=== PATIENT | male | born 1960 | race Caucasian/White ===

== ENCOUNTER 2017-05-09 16:22 | Observation (INO) ==
[2017-05-09 17:01] LABS: Basophils % 0.9 %; Eosinophils # 0.1 K/mcL (0.0-0.6); Eosinophils % 1.3 %; Hematocrit 40.5 % (37.5-50.1); Hemoglobin 14.7 g/dL (12.9-16.9); Immature Granulocytes % 0.4 % (0-4); Lymphocytes # 1.1 K/mcL (0.6-4.6); Lymphocytes % 23.7 %; Mean Corpuscular HGB Conc 36.3 g/dL (31.6-35.5); Mean Corpuscular Hemoglobin 30.6 pg (28.0-33.3); Mean Corpuscular Volume 84.2 fL (83.0-100.0); Mean Platelet Volume 9.1 fL (9.4-12.4); Monocytes # 0.3 K/mcL (0.0-1.3); Neutrophils # 3.1 K/mcL (1.6-8.9); Platelet Count 205 K/mcL (140-400); Red Blood Count 4.81 M/mcL (4.19-5.50); Red Cell Distribution Width 13.6 % (11.5-14.5); Segmented Neutrophils % 66.7 %
[2017-05-09 17:07] LABS: Prothrombin Time 11.2 Seconds (9.4-12.1)
--- NOTE | 2017-05-09 17:08 | Emergency Department Note ---
Disposition Clinical Impression: Dysarthria, Facial numbness Disposition: Admitted As Inpatient Condition: Good General Adult HPI - General Chief complaint: ED Neuro Symptoms/Deficit Stated complaint: neuro sx Time Seen by Provider: 05/09/17 16:40 Source: patient Limitations: no limitations - History of Present Illness Pain Scale: 8 - Related Data Home Medications Medication Instructions Recorded Confirmed glipiZIDE 05/09/17 05/09/17 Allergies Allergy/AdvReac Type Severity Reaction Status Date / Time metformin Allergy Diarrhea Verified 05/09/17 16:26 Past Medical History - Past Medical History Medical history: Reports: diabetes, hypertension Psychiatric history: Reports: no psych history - Social History Smoking Status: Former smoker Smokeless Tobacco Status: No Alcohol use: Reports: none Drug use: Reports: none Physical Exam - General Limitations: no limitations General appearance: alert, in no apparent distress Course Vital Signs Temperature 98.0 F 05/09/17 16:26 Pulse Rate 115 05/09/17 16:26 Respiratory Rate 18 05/09/17 16:26 Blood Pressure 183/94 05/09/17 16:26 O2 Sat by Pulse Oximetry 97 05/09/17 16:26 Temperature 97.8 F 05/09/17 19:57 Pulse Rate 87 05/09/17 19:57 Respiratory Rate 17 05/09/17 19:57 Blood Pressure 151/71 05/09/17 19:57 O2 Sat by Pulse Oximetry 97 05/09/17 19:57 Oxygen Delivery Oxygen Delivery Room Air Medical Decision Making - Lab Data Result diagrams: 05/09/17 16:44 05/09/17 16:44 Lab Results 05/09/17 05/09/17 05/09/17 Range/Units 16:44 16:44 16:44 WBC 4.7 (4.3-11.1) K/mcL RBC 4.81 (4.19-5.50) M/mcL Hgb 14.7 (12.9-16.9) g/dL Hct 40.5 (37.5-50.1) % MCV 84.2 (83.0-100.0) fL MCH 30.6 (28.0-33.3) pg MCHC 36.3 H (31.6-35.5) g/dL RDW 13.6 (11.5-14.5) % Plt Count 205 (140-400) K/mcL MPV 9.1 L (9.4-12.4) fL Immature Gran % 0.4 (0-4) % Seg Neutrophils % 66.7 % Lymphocytes % 23.7 % Monocytes % 7.0 % Eosinophils % 1.3 % Basophils % 0.9 % Neutrophils # 3.1 (1.6-8.9) K/mcL Lymphocytes # 1.1 (0.6-4.6) K/mcL Monocytes # 0.3 (0.0-1.3) K/mcL Eosinophils # 0.1 (0.0-0.6) K/mcL Basophils # 0.0 (0.0-0.2) K/mcL PT 11.2 (9.4-12.1) Seconds INR 1.0 APTT 29.6 (26.0-36.0) Seconds Sodium 133 L (136-145) mEq/L Potassium 3.8 (3.5-5.1) mEq/L Chloride 102 (98-107) mEq/L Carbon Dioxide 22 L (23-29) mEq/L BUN 15 (6-20) mg/dL Creatinine 0.85 (0.70-1.30) mg/dL Est GFR ( Amer) > 60 (> 60) Est GFR (Non-Af Amer) > 60 (> 60) BUN/Creatinine Ratio 18 (6-26) Glucose 366 H (70-105) mg/dL POC Glucose (58-89) Calculated Osmolality 292 (280-300) Calcium 9.6 (8.6-10.3) mg/dL Troponin I < 0.03 (< 0.04) ng/mL 05/09/17 05/09/17 Range/Units 16:45 16:47 WBC (4.3-11.1) K/mcL RBC (4.19-5.50) M/mcL Hgb (12.9-16.9) g/dL Hct (37.5-50.1) % MCV (83.0-100.0) fL MCH (28.0-33.3) pg MCHC (31.6-35.5) g/dL RDW (11.5-14.5) % Plt Count (140-400) K/mcL MPV (9.4-12.4) fL Immature Gran % (0-4) % Seg Neutrophils % % Lymphocytes % % Monocytes % % Eosinophils % % Basophils % % Neutrophils # (1.6-8.9) K/mcL Lymphocytes # (0.6-4.6) K/mcL Monocytes # (0.0-1.3) K/mcL Eosinophils # (0.0-0.6) K/mcL Basophils # (0.0-0.2) K/mcL PT (9.4-12.1) Seconds INR APTT (26.0-36.0) Seconds Sodium (136-145) mEq/L Potassium (3.5-5.1) mEq/L Chloride (98-107) mEq/L Carbon Dioxide (23-29) mEq/L BUN (6-20) mg/dL Creatinine (0.70-1.30) mg/dL Est GFR ( Amer) (> 60) Est GFR (Non-Af Amer) (> 60) BUN/Creatinine Ratio (6-26) Glucose (70-105) mg/dL POC Glucose 338 H 362 H (58-89) Calculated Osmolality (280-300) Calcium (8.6-10.3) mg/dL Troponin I (< 0.04) ng/mL Attestation Statement - Attestation Attestation: I examined this patient and my medical decision-making was reviewed with the Resident Physician. I agree with the documented findings, disposition and treatment plan as described except to the extent set forth below. [id number] time provided Patient arrives in the care of his girlfriend. He has experienced dysarthria that started 45 minutes prior to arrival. Stroke alert activated. Patient appears in no acute distress on exam
[2017-05-09 17:09] LABS: Activated Partial Thrombo Time 29.6 Seconds (26.0-36.0)
[2017-05-09 17:27] LABS: BUN/Creatinine Ratio 18 (6-26); Blood Urea Nitrogen 15 mg/dL (6-20); Calcium 9.6 mg/dL (8.6-10.3); Carbon Dioxide 22 mEq/L (23-29); Chloride 102 mEq/L (98-107); Glucose 366 mg/dL (70-105); Osmolality,Calculated 292 (280-300); Potassium 3.8 mEq/L (3.5-5.1); Sodium 133 mEq/L (136-145); Troponin I < 0.03 ng/mL (< 0.04); eGFR For African Americans > 60 (> 60); eGFR For Non-African Americans > 60 (> 60)
[2017-05-09] MEDS ORDERED: Aspirin 325 MG TABLET PO ONE (17:39)
--- NOTE | 2017-05-09 17:50 | Emergency Department Note ---
Disposition Clinical Impression: Dysarthria, Facial numbness Disposition: Admitted As Inpatient Condition: Good Forms: ED Satisfaction Letter Neuro HPI - General Chief Complaint: ED Neuro Symptoms/Deficit Stated Complaint: neuro sx Time Seen by Provider: 05/09/17 16:40 Source: patient Mode of arrival: private vehicle Limitations: no limitations Nursing Notes Reviewed: Yes Vital Signs Reviewed: Yes - History of Present Illness HPI Narrative: 56-year-old male history of diabetes presents to the ER with a chief complaint of left facial paresthesias and dysarthria. States symptoms started around 2 PM yesterday. Lasted for roughly 3 hours and went away. Reports today he started having pain and paresthesias to the left face again and his speech was different. No prior history of this in the past. No history of CVA or TIA. No head injury. No recent illnesses. No numbness tingling or paresthesias of with the exception of his face. No other complaints. Onset of Symptoms Date: 05/08/17 Onset of Symptoms Time: 14:00 Symptom Onset Unknown: No Timing confirmed by: spouse Location: speech, left face History of same: No Severity: mild Symptoms Improving: Yes Improves with: time Worsens with: none Context: sudden onset On Anticoagulants: No Associated symptoms: Reports: denies other symptoms Treatments Prior to Arrival: none - Related Data Allergies/Adverse Reactions: Allergies Allergy/AdvReac Type Severity Reaction Status Date / Time metformin Allergy Diarrhea Verified 05/09/17 16:26 All systems ED: reviewed and negative except as stated. Constitutional: Denies: fever Cardiovascular: Denies: chest pain Respiratory: Denies: cough, dyspnea Gastrointestinal: Denies: abdominal pain, nausea, vomiting Neurological: Reports: paresthesias. Denies: headache, weakness, numbness Past Medical History - Past Medical History Attestation: Yes The following information was validated with the patient. Source: patient Medical history: Reports: diabetes, hypertension Psychiatric history: Reports: no psych history - Social History Smoking Status: Former smoker Smokeless Tobacco Status: No Alcohol use: Reports: none Drug use: Reports: none Physical Exam - General Limitations: no limitations General appearance: alert, in no apparent distress - Head Head exam: atraumatic, normocephalic, normal inspection - Eye Eye exam: Present: normal appearance, PERRL, EOMI - ENT ENT exam: normal exam - Neck Neck exam: Present: normal inspection, full ROM - Chest Chest inspection: Present: normal inspection, symmetric chest wall rise - Respiratory Respiratory exam: Present: normal lung sounds bilaterally - Cardiovascular Cardiovascular exam: Present: regular rate, normal rhythm, normal heart sounds - Abdominal Exam Abdominal exam: Present: soft, Non-Tender. Absent: tenderness - Extremities Exam Extremities exam: Present: normal inspection, full ROM - Expanded Upper Extremity Exam Shoulder exam: Present: normal inspection, full ROM Arm exam: Present: normal inspection, full ROM Elbow exam: Present: normal inspection, full ROM Forearm/Wrist exam: Present: normal inspection, full ROM Hand exam: Present: normal inspection, full ROM - Expanded Lower Extremity Exam Hip/Pelvis exam: Present: normal inspection, full ROM Upper leg exam: Present: normal inspection, full ROM Knee exam: Present: normal inspection, full ROM Lower leg exam: Present: normal inspection, full ROM Ankle exam: Present: normal inspection, full ROM Foot/toe exam: Present: normal inspection, full ROM - Neurological Exam Neurological exam: Present: alert, oriented X3 - Expanded Neurological Exam Speech: Present: fluid speech Cranial nerves: EOM function (II, III, IV, ): Normal, facial sensation (V): Abnormal Left, facial palsy (VII): Abnormal Left, spinal accessory function (XI) : Normal, tongue deviation (XII): Normal Cerebellar function: finger to nose: Normal, heel to momin: Normal Motor strength - LUE: 5/5 Motor strength - RUE: 5/5 Motor strength - LLE: 5/5 Motor strength - RLE: 5/5 Sensory exam upper extremity: light touch: Normal Sensory exam lower extremity: light touch: Normal Coma Scale Eye Opening: Spontaneous Coma Scale Motor Response: Obeys Commands Coma Scale Verbal Response: Oriented Coma Scale Total: 15 - Psychiatric Psychiatric exam: Present: normal affect, normal mood - Skin Skin exam: Present: warm, dry Course Course Narrative: Patient seen and examined. Vital signs reviewed. Stroke alert called given his symptoms. Last known well at 2 PM today. Patient taken for emergent CT of the head. We will also discuss with stroke neurology at [facility]. - Reevaluation(s) Reevaluation #1: Patient evaluated by telecommunication with [facility] neurology. They give him a score of an NIH of 1. No recommendation for TPA however they do recommend to admit for evaluation. Vital Signs Temperature 98.0 F 05/09/17 16:26 Pulse Rate 115 05/09/17 16:26 Respiratory Rate 18 05/09/17 16:26 Blood Pressure 183/94 05/09/17 16:26 O2 Sat by Pulse Oximetry 97 05/09/17 16:26 Temperature 98.0 F 05/09/17 16:26 Pulse Rate 80 05/09/17 18:12 Respiratory Rate 20 05/09/17 18:12 Blood Pressure 149/88 05/09/17 18:12 O2 Sat by Pulse Oximetry 97 05/09/17 18:12 Oxygen Delivery Oxygen Delivery Room Air Neuro Symptoms/Deficit - MDM Narrative Medical decision making narrative: 56-year-old male presents to the ER with a chief complaint of dysarthria and left facial numbness. Symptoms were there yesterday then went away. Recurred again today at 2 PM. Stroke alert called. Evaluated by [facility] neurology. No recommendation for TPA. NIH of 2 by my account here. Patient given aspirin. Admitted the hospitalist service for stroke evaluation. - Lab Data Lab results reviewed: Yes I reviewed the patient's lab results. Result diagrams: 05/09/17 16:44 05/09/17 16:44 Lab Results 05/09/17 05/09/17 05/09/17 Range/Units 16:44 16:44 16:44 WBC 4.7 (4.3-11.1) K/mcL RBC 4.81 (4.19-5.50) M/mcL Hgb 14.7 (12.9-16.9) g/dL Hct 40.5 (37.5-50.1) % MCV 84.2 (83.0-100.0) fL MCH 30.6 (28.0-33.3) pg MCHC 36.3 H (31.6-35.5) g/dL RDW 13.6 (11.5-14.5) % Plt Count 205 (140-400) K/mcL MPV 9.1 L (9.4-12.4) fL Immature Gran % 0.4 (0-4) % Seg Neutrophils % 66.7 % Lymphocytes % 23.7 % Monocytes % 7.0 % Eosinophils % 1.3 % Basophils % 0.9 % Neutrophils # 3.1 (1.6-8.9) K/mcL Lymphocytes # 1.1 (0.6-4.6) K/mcL Monocytes # 0.3 (0.0-1.3) K/mcL Eosinophils # 0.1 (0.0-0.6) K/mcL Basophils # 0.0 (0.0-0.2) K/mcL PT 11.2 (9.4-12.1) Seconds INR 1.0 APTT 29.6 (26.0-36.0) Seconds Sodium 133 L (136-145) mEq/L Potassium 3.8 (3.5-5.1) mEq/L Chloride 102 (98-107) mEq/L Carbon Dioxide 22 L (23-29) mEq/L BUN 15 (6-20) mg/dL Creatinine 0.85 (0.70-1.30) mg/dL Est GFR ( Amer) > 60 (> 60) Est GFR (Non-Af Amer) > 60 (> 60) BUN/Creatinine Ratio 18 (6-26) Glucose 366 H (70-105) mg/dL POC Glucose (58-89) Calculated Osmolality 292 (280-300) Calcium 9.6 (8.6-10.3) mg/dL Troponin I < 0.03 (< 0.04) ng/mL 05/09/17 05/09/17 Range/Units 16:45 16:47 WBC (4.3-11.1) K/mcL RBC (4.19-5.50) M/mcL Hgb (12.9-16.9) g/dL Hct (37.5-50.1) % MCV (83.0-100.0) fL MCH (28.0-33.3) pg MCHC (31.6-35.5) g/dL RDW (11.5-14.5) % Plt Count (140-400) K/mcL MPV (9.4-12.4) fL Immature Gran % (0-4) % Seg Neutrophils % % Lymphocytes % % Monocytes % % Eosinophils % % Basophils % % Neutrophils # (1.6-8.9) K/mcL Lymphocytes # (0.6-4.6) K/mcL Monocytes # (0.0-1.3) K/mcL Eosinophils # (0.0-0.6) K/mcL Basophils # (0.0-0.2) K/mcL PT (9.4-12.1) Seconds INR APTT (26.0-36.0) Seconds Sodium (136-145) mEq/L Potassium (3.5-5.1) mEq/L Chloride (98-107) mEq/L Carbon Dioxide (23-29) mEq/L BUN (6-20) mg/dL Creatinine (0.70-1.30) mg/dL Est GFR ( Amer) (> 60) Est GFR (Non-Af Amer) (> 60) BUN/Creatinine Ratio (6-26) Glucose (70-105) mg/dL POC Glucose 338 H 362 H (58-89) Calculated Osmolality (280-300) Calcium (8.6-10.3) mg/dL Troponin I (< 0.04) ng/mL - Radiology Data Radiology results reviewed: Yes I reviewed the patient's radiology results. Head CT 05/09/17 16:44 IMPRESSION: No CT evidence for acute intracranial abnormality. If there remains concern for acute stroke, MRI could be considered for further evaluation due to its increased sensitivity for acute stroke. D/ / Wolf Victor / Wolf Victor Interpreting Provider: Wolf Victor Stroke Scale - Level of Consciousness LOC: Alert - LOC Questions LOC Questions: Answers both correctly - LOC Commands LOC Commands: Performs both correctly - Best Gaze Best Gaze: Normal - Visual Visual: No visual loss - Facial Palsy Facial Palsy: Normal - Motor Arms Motor Arm-Left: No drift for 10 seconds Motor Arm-Right: No drift for 10 seconds - Motor Legs Motor Leg-Left: No drift for 5 seconds Motor Leg-Right: No drift for 5 seconds - Limb Ataxia Limb Ataxia: Absent of affected limb too weak to perform exam - Sensory Sensory: Mild to moderate loss, "not as sharp" - Best Language Best Language: No aphasia - Dysarthria Dysarthria: Mild, slurs some words - Extinction and Inattention Extinction and Inattention: Normal - NIHSS Total Score NIHSS Total Score: 2 TPA Checklist - LKW: 3-4.5 hrs Add. Warnings/Precautions Patient/family understanding: The patient/family members have been counseled and understood the risk, benefit , and alternatives of treatment.
--- NOTE | 2017-05-09 23:08 | Internal Med History&Physical ---
<Jaymie Hubbard - Last Filed: 05/10/17 03:58> Date of Encounter: 05/10/17 Time of Encounter: 23:08 Assessment and Plan (1) TIA (transient ischemic attack) Current visit: Yes Status: Acute Suspected. Initial imaging (CT head without contrast) negative for acute intracranial abnormalities. Left-sided facial numbness resolved. Slurred speech improved, per pt--pt's significant other not present at time of my exam. Slight left-sided facial droop present. Not candidate for tPA per [facility] stroke team. Blood pressure 145/68 and pulse 78, no anti-hypertensives at this time. - EKG - Continuous cardiac monitoring - NIHSS checks per protocol - Bilateral carotid ultrasound pending - MRI head without contrast pending - Echocardiogram pending - Neurology consult placed - Start atorvastatin 80 mg PO HS Qualifiers: Transient cerebral ischemia type: unspecified Qualified Code(s): G45.9 - Transient cerebral ischemic attack, unspecified (2) Type 2 diabetes mellitus without complication, with long-term current use of insulin Current visit: Yes Status: Chronic Hyperglycemic on admission, serum glucose of 366. Home med glipizide held. Placed on SSI with ACHS accu-cheks. (3) DVT prophylaxis Current visit: Yes Status: Acute Heparin 5,000 units SubQ Q12H Internal Medicine - H&P: HPI Chief complaint: Left-sided facial numbness, slurred speech History of present illness: Mr. Jiménez is a 56 year old male who presented to ED with c/o left-sided facial numbness and slurred speech since 14:00 on day of admission. Pt describes driving when he experienced left-sided face pain that was constant and felt like a "toothache" before feeling left-sided facial numbness. He admits to having 5-10 minutes of "shady" vision which resolved on its own. Pt went to urgent care and was found to be hypertensive and tachycardic, urgent care recommended he go to the ED for CT scan. En route to the ED, pt's girlfriend noticed his speech seemed to be slurred. Pt had a similar experience the day before of left-sided face pain and numbness that began around 14:00 [address], the pain lasted about 3 hours before going away on its own, he had no slurred speech or vision changes. Pt denies aggravating or relieving factors regarding his facial pain. He denies headache, diplopia, vision loss, sensation of dizziness/lightheadedness, weakness, paresthesias except as described above, confusion, loss of bowel or bladder continence. On arrival to ED, pt was tachycardic with pulse 115 and hypertensive with BP 183 /94. He received a head CT which found no acute intracranial abnormalities and basic labs were drawn. Labwork largely unremarkable, but did show hyperglycemia (366) and slight hyponatremia (133). ED physicians spoke with [facility] stroke team who gave pt NIH stroke scale score of 1 and didn't believe pt was a candidate for tPA, but recommended admission for workup. Past Med Surg Social Fam HX - Past Medical History Medical history: diabetes, hypertension Psychiatric history: no psych history - Social History Smoking Status: Former smoker Smokeless Tobacco Status: No Alcohol use: none Drug use: none - Family History Father Living Status: Hx Family Cancer: Yes Mother Living Status: Hx Family Cardiac Disorders: Yes Internal Medicine - H&P: Meds glipiZIDE 05/09/17 [History] 3 Allergy/AdvReac Type Severity Reaction Status Date / Time metformin Allergy Diarrhea Verified 05/09/17 16:26 All Systems PM: A 10-system review of systems was performed and is negative for pertinent findings except as documented above in the HPI. - Constitutional Constitutional: no chills, no fever(s) - EENT Eyes: no blurry vision, no diplopia, no photophobia Nose, mouth and throat: no neck pain - Cardiovascular Cardiovascular ROS IM: no chest pain, no dyspnea, no lightheadedness, no palpitations - Respiratory Respiratory: no cough, no dyspnea - Gastrointestinal Gastrointestinal: no abdominal pain, no constipation, no diarrhea, no fecal incontinence, no heartburn, no nausea, no vomiting - Genitourinary Genitourinary ROS male: no urinary incontinence - Musculoskeletal Musculoskeletal ROS IM: no muscle weakness, no neck pain, no numbness - Neurological Neurological ROS: no abnormal gait, no confusion, no dizziness, no focal weakness, no loss of vision, no paresthesias, no weakness - Constitutional Vitals: Temp Pulse Resp BP Pulse Ox 97.9 F 78 17 145/68 97 05/09/17 23:04 05/09/17 23:04 05/09/17 23:04 05/09/17 23:04 05/09/17 23:04 General appearance: Present: A&O X 3, pleasant, no acute distress, answers questions appropriately - Head Head exam: Present: atraumatic, normocephalic Additional comments: Left-side pre-auricular area and jaw not tender to palpation, no visible swelling or deformity - Eye Eye exam: Present: EOMI, PERRL, sclera anicteric. Absent: periorbital swelling , periorbital tenderness - ENT Additional comments: No visible or palpable left-sided oral lesions or swelling. - Expanded ENT Exam Mouth exam: Present: moist, tongue normal. Absent: drooling, muffled voice Teeth exam: Present: edentulous - Neck Neck exam general surgery: Present: full ROM, supple. Absent: nuchal rigidity - Respiratory Respiratory exam: Present: CTAB. Absent: rales, respiratory distress, rhonchi, wheezes - Cardiovascular Cardiovascular exam: Present: RRR, +S1, +S2, systolic murmur - GI/Abdominal GI/Abdominal exam: Present: normal bowel sounds, soft. Absent: tenderness - Extremities Exam Extremities exam: Present: full ROM - Back Exam Back exam: Present: normal inspection - Neurological Exam Neurological exam: Present: CN II-XII intact, no focal deficits, facial droop ( left-sided, slight) - Expanded Neurological Exam Patient oriented to: Present: person, place, time Speech: Present: fluid speech. Absent: slurred Cerebellar function: finger to nose: Normal, heel to momin: Normal Neuro motor strength exam: LUE: 5, RUE: 5, LLE: 5, RLE: 5 Coma Scale Eye Opening: Spontaneous Coma Scale Motor Response: Obeys Commands Coma Scale Verbal Response: Oriented Coma Scale Total: 15 - Skin Skin exam: Present: dry, intact, warm Internal Med - H&P Results - Labs CBC & Chem 7: 05/09/17 16:44 05/09/17 16:44 <Tito Allen - Last Filed: 05/10/17 04:32> Date of Encounter: 05/10/17 Time of Encounter: 03:20 Past Med Surg Social Fam HX - Past Medical History Attestation: Yes The following information was validated with the patient. Source: patient, old records reviewed Medical history: diabetes, hypertension - Past Surgical History Surgical History: no surgical history - Social History Smoking Status: Former smoker Alcohol use: none Drug use: none Occupational status: employed Current living situation: Home, With Family Activity Level: Independent ambulation Recent Out of Country Travel Within the Last 8 Weeks: No - Constitutional Vitals: Temp Pulse Resp BP Pulse Ox 97.8 F 83 16 131/76 96 05/10/17 03:05 05/10/17 03:05 05/10/17 03:05 05/10/17 03:05 05/10/17 03:05 General appearance: Present: A&O X 3, pleasant, no acute distress - Head Head exam: Present: normal inspection - Eye Eye exam: Present: EOMI, PERRL. Absent: scleral icterus Pupils: Present: normal accommodation - ENT ENT exam: Present: mucous membranes dry, normal exam - Neck Neck exam general surgery: Present: full ROM, supple. Absent: tenderness, nuchal rigidity - Expanded Neck Exam Neck exam: Absent: anterior neck swelling - Respiratory Respiratory exam: Present: CTAB. Absent: rales, rhonchi, wheezes - Cardiovascular Cardiovascular exam: Present: RRR, +S1, +S2, systolic murmur (grade 1- 2). Absent: diastolic murmur - GI/Abdominal GI/Abdominal exam: Present: soft. Absent: tenderness - Neurological Exam Neurological exam: Present: alert, CN II-XII intact, oriented X3, no focal deficits. Absent: facial droop - Psychiatric Psychiatric exam: Present: normal affect, normal mood - Skin Skin exam: Present: dry, intact, warm Internal Med - H&P Results - Labs CBC & Chem 7: 05/09/17 16:44 05/09/17 16:44 - EKG Data -: EKG Interpreted by Myself - EKG Data EKG comments: 05/10/17 04:24 Sinus rhythm - Attending Attestation I discussed the patient [place], PMH, ROS, lab data, and exam findings with Dr. Javed. I then saw and examined patient independently as well. Patient seems to have fully recovered by the time I saw him. He denies any focal deficits, speech deficits, or swallowing problems. He is diabetic and hypertensive. He has no PCP, and he follows with Urgent Care when he needs medications. Family history is negative for stroke per my discussions with patient. Despite resolution of symptoms, he warrants work up as noted above. I also counseled patient on need for proper follow up and establishment with PCP. Other than my comments above and noted exam findings, I agree with Dr. Javed' s assessment and plan.
[2017-05-10] MEDS ORDERED: Naloxone 0.4 MG/ML INJ IVP PRN (00:01)
[2017-05-10] MEDS ORDERED: D5% in Water 1,000 ML IVC PRN (00:03)
[2017-05-10] MEDS ORDERED: *HR* Dextrose 50 % in Water (Syg) 50 ML SYRINGE IVP PRN (00:03)
[2017-05-10] MEDS ORDERED: Dextrose Gel 15 GM/37.5 ML TUBE PO PRN ×2 (00:03)
[2017-05-10] MEDS: *HR* Heparin 5,000 UNIT/ML VIAL SQ SCH ×2 (05:38→17:47)
[2017-05-10 06:42] LABS: Hematocrit 39.4 % (37.5-50.1); Hemoglobin 13.8 g/dL (12.9-16.9); Mean Corpuscular Volume 86.2 fL (83.0-100.0); Red Blood Count 4.57 M/mcL (4.19-5.50)
[2017-05-10 06:43] LABS: Basophils % 1.1 %; Eosinophils # 0.1 K/mcL (0.0-0.6); Eosinophils % 1.9 %; Immature Granulocytes % 0.5 % (0-4); Lymphocytes # 1.1 K/mcL (0.6-4.6); Lymphocytes % 28.8 %; Mean Corpuscular Hemoglobin 30.2 pg (28.0-33.3); Mean Platelet Volume 9.3 fL (9.4-12.4); Monocytes # 0.4 K/mcL (0.0-1.3); Monocytes % 9.5 %; Neutrophils # 2.1 K/mcL (1.6-8.9); Platelet Count 181 K/mcL (140-400); Red Cell Distribution Width 13.8 % (11.5-14.5); Segmented Neutrophils % 58.2 %
[2017-05-10 06:58] LABS: BUN/Creatinine Ratio 18 (6-26); Blood Urea Nitrogen 13 mg/dL (6-20); Calcium 8.9 mg/dL (8.6-10.3); Carbon Dioxide 24 mEq/L (23-29); Chloride 104 mEq/L (98-107); Glucose 232 mg/dL (70-105); Osmolality,Calculated 288 (280-300); Potassium 3.9 mEq/L (3.5-5.1); Sodium 135 mEq/L (136-145); eGFR For African Americans > 60 (> 60); eGFR For Non-African Americans > 60 (> 60)
[2017-05-10] MEDS: Insulin LISPRO 300 UNITS/3 ML VIAL SQ SCH ×3 (08:01→17:47)
--- NOTE | 2017-05-10 08:51 | Neurology - Consult Note ---
<ZainJosé Miguel hudson - Last Filed: 05/10/17 15:11> Date of Encounter: 05/10/17 Time of Encounter: 08:50 Assessment and Plan (1) Facial numbness Current Visit: Yes Status: Resolved Mr. Jiménez 56-year-old male presented with left facial numbness tingling and intermittent facial droop 2 episodes over the last 2 days. No significant risk factors, symptoms completely resolved, imaging studies negative for any acute findings. He does mention poor sleep habits, secondary to his job. - Low suspicion for TIA or stroke, likely secondary to poor sleeping habits. No findings to support Murcia's palsy or trigeminal neuralgia. - Continue monitor symptoms, improved sleep habits. History of Present Illness HPI: Mr. Jiménez is a 56 year old male past medical history of type 2 diabetes on glipizide presented to the emergency department with left facial numbness and facial droop and slurred speech. He states that this is the second episode in 2 days of having the feeling of a toothache followed by numbness in his left face and facial droop that lasted roughly 3-4 hours then self resolves. He denies of ever having strokes, seizures, diagnosed migraine headaches, clotting disorders or cardiac disease in the past. No change in vision, blurry vision or double vision or change in hearing. He denies smoking or history of hypertension. He says these are the only 2 events he has had without any associated weakness in his extremities or difficulty with coordination. He feels that his speech is close to baseline but not completely resolved but otherwise he feels active normal without facial asymmetry. No recent infections , colds, illnesses in the last 3 months. He denies any new medications, change in diet or ingestion of any substances. Past Med Surg Social Fam HX - Past Medical History Medical history: diabetes, hypertension Psychiatric history: no psych history - Past Surgical History Surgical History: no surgical history - Social History Smoking Status: Former smoker Smokeless Tobacco Status: No Alcohol use: none Drug use: none - Family History Father Living Status: Hx Family Cancer: Yes Mother Living Status: Hx Family Cardiac Disorders: Yes Medications and Allergies glipiZIDE 05/09/17 [History] Atorvastatin [Lipitor] 80 mg PO HS #30 tablet 05/10/17 [Rx] Melatonin/Pyridoxine HCl (B6) [Melatonin 5 mg Tablet] 1 each PO HS #30 tablet [Rx] rOPINIRole [Requip] 1 mg PO HS #30 tablet 05/10/17 [Rx] 3 Allergy/AdvReac Type Severity Reaction Status Date / Time metformin Allergy Diarrhea Verified 05/09/17 16:26 All Systems: The remainder of the systems were reviewed and are negative - Constitutional Constitutional ROS IM: no daytime sleepiness, no fatigue, no fever(s), no frequent falls, no weakness, no weight loss - Nose, Mouth, Throat Nose, mouth and throat: no abnormal hearing, no disequilibrium, no dizziness, no facial pain, no headache(s), no neck pain, no sore throat - Cardiovascular Cardiovascular ROS IM: no irregular heart rhythm, no rapid heart rate, no slow heart rate, no syncope - Respiratory Respiratory IM: no cough, no dyspnea, no stridor - Gastrointestinal Gastrointestinal: no cramping, no diarrhea, no dyspepsia, no dysphagia, no nausea, no vomiting - Genitourinary Genitourinary ROS: no urinary frequency, no urinary hesitancy, no urinary incontinence, no urinary urgency - Musculoskeletal Musculoskeletal ROS IM: numbness (Left face), tingling (Left face), no muscle cramps - Neurological Neurological ROS: tingling, no abnormal gait, no abnormal hearing, no confusion , no dizziness, no focal weakness, no loss of vision, no sensory deficit, no syncope, no weakness, no other visual disturbances Physical Examination - Vital Signs Vital Signs: Initial Vital Signs Temp Pulse Resp BP Pulse Ox 98.0 F 115 18 183/94 97 05/09/17 16:26 05/09/17 16:26 05/09/17 16:26 05/09/17 16:26 05/09/17 16:26 - Constitutional General appearance: comfortable - Neurologic Sensorimotor examination: intact Detailed motor examination: grossly full strength in all extremities, full strength in all major muscle groups Motor examination - right side: 5/5: deltoids, biceps, triceps, wrist flexion, wrist extension, 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, 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, tibialis Anterior, quadriceps, toe extension (EHL), plantarflexion Motor examination - left side: 5/5: deltoids, biceps, triceps, wrist flexion, wrist extension, hip flexors, 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, quadriceps, tibialis Anterior, toe extension (EHL), plantarflexion Detailed sensory examination: intact Reflex and gait examination: intact Reflexes: Biceps: 2+, Triceps: 2+, Brachioradialis: 2+, Patella: 2+, Achilles: 2 + Mental Status Examination: awake, alert, oriented to person, oriented to place, oriented to time, follows commands appropriately, answers questions appropriately, no agnosia, no aphasia, no aproxia, lucid Cranial nerve examination: PERRL, EOMI, visual garcía intact, corneal reflexes brisk symmetrically, sensory to face intact, mastication intact, no facial asymmetry is present, no dysarthria, hearing is intact symmetrically, soft palate elevates bilaterally upon phonation, flexes SCM and trapezius muscles symmetrically with full power Cerebellar examination: no dysmetria, performs finger to nose and heel to momin symmetrically without ataxia, no gait ataxia Results - Laboratory Findings CBC and BMP: 05/10/17 05:55 05/10/17 05:55 Abnormal lab findings: Abnormal lab results WBC 3.7 K/mcL (4.3-11.1) L 05/10/17 05:55 MPV 9.3 fL (9.4-12.4) L 05/10/17 05:55 Sodium 135 mEq/L (136-145) L 05/10/17 05:55 Glucose 232 mg/dL (70-105) H 05/10/17 05:55 POC Glucose 392 (58-89) H 05/09/17 20:03 Consult Discharge Plan - Plan Referrals: Jayson Mccracken MD [Partnered Physician] - 06/12/17 8:30 am ([address]- [facility]) NONE,PCP [Primary Care Provider] - Prescriptions: Atorvastatin [Lipitor] 80 mg PO HS #30 tablet Melatonin/Pyridoxine HCl (B6) [Melatonin 5 mg Tablet] 1 each PO HS #30 tablet rOPINIRole [Requip] 1 mg PO HS #30 tablet <Evelio Taylor I - Last Filed: 05/11/17 16:46> Date of Encounter: 05/10/17 Assessment and Plan (1) Facial numbness Current Visit: Yes Status: Resolved Pt was seen and examined, my medical decision was reviewed with the Resident Physician, I agree with the documented findings, disposition and treatment plas as described except to the extent set forth below Evelio Taylor MD At the moment patient having these symptoms seem to be quite nonspecific he did not have seek any medical attention for long period of time and now seems to be symptom free without any focal lateralizing sign of a stroke. Considering his multiple risk factors stroke/ TIA remains in his differential. I would recommend that we should do a complete workup of a stroke as afraid that he may not keep his outpatient appointment Recommend echocardiogram as well as carotid duplex, lipid profile and continue to monitor him for any cardiac arrhythmias In the meantime continue him on baby aspirin along with his other medication continue to monitor his blood pressure and keep it stable If workup is negative patient could be discharged to home but I would recommend that he should keep a regular visit with his primary care for risk factor modification as he he has risk factor for stroke or TIA History of Present Illness HPI: Mr. Jiménez is a 56 year old male All Systems: The remainder of the systems were reviewed and are negative Physical Examination - Vital Signs Vital Signs: Initial Vital Signs Temp Pulse Resp BP Pulse Ox 98.0 F 115 18 183/94 97 05/09/17 16:26 05/09/17 16:26 05/09/17 16:26 05/09/17 16:26 05/09/17 16:26 Results - Laboratory Findings CBC and BMP: 05/11/17 04:35 05/11/17 04:35 Abnormal lab findings: Abnormal lab results WBC 3.7 K/mcL (4.3-11.1) L 05/10/17 05:55 MPV 9.3 fL (9.4-12.4) L 05/10/17 05:55 Sodium 135 mEq/L (136-145) L 05/10/17 05:55 Glucose 232 mg/dL (70-105) H 05/10/17 05:55 POC Glucose 392 (58-89) H 05/09/17 20:03
--- NOTE | 2017-05-10 16:11 | Discharge Summary ---
- NOTES TO OUTPATIENT PROVIDER Notes to Outpatient Provider: Patient has been released from work until Monday but will need to be evaluated by his healthcare provider for clearance to return to work on Monday. Advised him to talk to somebody about a repeat sleep study as he has not been using his ordered machines at home because they do not fit and he cannot tolerate them. Recommended melatonin for sleep aid as a starting point. Requip for restless leg syndrome. According to [facility] has not refilled his glyburide prescriptions since 2015 Date of Encounter: 05/10/17 Time of Encounter: 16:06 Hospital course: Mr. Jiménez is a 56 year old male Discharge discussed with: patient, family, nurse - Time Spent with Patient Total time spent providing and/or coordinating discharge services: Less than 30 minutes - Discharge Medications Prescriptions: Atorvastatin [Lipitor] 80 mg PO HS #30 tablet Melatonin/Pyridoxine HCl (B6) [Melatonin 5 mg Tablet] 1 each PO HS #30 tablet rOPINIRole [Requip] 1 mg PO HS #30 tablet Home Medications: glipiZIDE 05/09/17 [History] Atorvastatin [Lipitor] 80 mg PO HS #30 tablet 05/10/17 [Rx] Melatonin/Pyridoxine HCl (B6) [Melatonin 5 mg Tablet] 1 each PO HS #30 tablet [Rx] rOPINIRole [Requip] 1 mg PO HS #30 tablet 05/10/17 [Rx] Allergies/Adverse Reactions: 3 Allergy/AdvReac Type Severity Reaction Status Date / Time metformin Allergy Diarrhea Verified 05/09/17 16:26 Date of admission: 05/09/17 19:51 Primary care physician: PCP NONE Consults: 05/10/17 00:39 Consult to Physical Therapy [CONS] Routine Comment: Evaluate, develop and implement POC Reason for Consult: possible TIA 05/10/17 00:40 Consult to Neurology [CONS] Routine Consulting Provider: Neurology [facility] Reason for Consult: possible TIA Call Completed: No Consult to Occupational Therapy [CONS] Routine Comment: Evaluate, develop and implement POC Reason for Consult: possible TIA Discharging clinician: Piedad Falcon Anticipated date of discharge: 05/10/17 - Constitutional Vitals: Temp Pulse Resp BP Pulse Ox 98.3 F 78 16 135/69 97 05/10/17 15:45 05/10/17 15:45 05/10/17 15:45 05/10/17 15:45 05/10/17 15:45 General appearance: Present: A&O X 3, pleasant, no acute distress - Patient Status Condition: Good - Discharge Instructions Follow Up With: NONE,PCP [Primary Care Provider] -
--- NOTE | 2017-05-10 16:29 | Internal Med Progress Note ---
Date of Encounter: 05/10/17 Time of Encounter: 16:25 - Assessment and plan (1) PFO (patent foramen ovale) Current Visit: Yes Status: Acute Assessment and plan: Echo impression LVEF 55-60%, normal LV chamber size, wall thickness, and function. Mild left ventricular diastolic dysfunction. Normal right ventricular structure and function. Right to left shunt with agitated saline consistent with a possible PFO. No evidence of pulmonary hypertension and no significant valvular dysfunction. Spoke with neurologist, recommend consult cardiology for possible KELLY or how they with want to manage this. Cardiology would do the KELLY if neuro felt it was clinically warrented Continue aspirin (2) Dysarthria Current Visit: Yes Status: Resolved (3) TIA (transient ischemic attack) Current Visit: Yes Status: Acute Assessment and plan: All symptoms have resolved Qualifiers: Transient cerebral ischemia type: unspecified Qualified Code(s): G45.9 - Transient cerebral ischemic attack, unspecified (4) Type 2 diabetes mellitus without complication, with long-term current use of insulin Current Visit: Yes Status: Chronic Assessment and plan: Continue sliding scale insulin with Accu-Cheks before meals and at bedtime. Patient states he was on glipizide but pharmacy stated he has not had it filled since 2016. The patient did not know his dose. (5) Facial numbness Current Visit: Yes Status: Resolved (6) Restless leg syndrome Current Visit: Yes Status: Acute Assessment and plan: Initiate Requip (7) Insomnia Current Visit: Yes Status: Acute Assessment and plan: Try melatonin Qualifiers: Insomnia type: unspecified Qualified Code(s): G47.00 - Insomnia, unspecified (8) DVT prophylaxis Current Visit: Yes Status: Acute - Subjective Interval history: Patient is lying in the bed his girlfriend is at the bedside. He is having no further symptoms of slurred speech or muscular weakness in the face. He denies any other neuro symptoms. He feels his best back to baseline. He does report restless leg syndrome keep him awake at night. He is also intolerant of his BiPAP at home. It appears that he is noncompliant with medications and he has poor understanding of the need to establish with a PCP. He denies any chest pain, shortness of breath, fever, chills, dizziness, changes in vision at this time. - Constitutional Vitals: Temp Pulse Resp BP Pulse Ox 98.3 F 78 16 135/69 97 05/10/17 15:45 05/10/17 15:45 05/10/17 15:45 05/10/17 15:45 05/10/17 15:45 General appearance: Present: cooperative, disheveled, A&O X 3, pleasant, answers questions appropriately Exam: Patient appears exhausted - Head Head exam: Present: atraumatic, normocephalic - Eye Eye exam: Present: PERRL, conjuntiva pink, sclera anicteric Pupils: Present: PERRL - Neck Neck exam general surgery: Present: supple, trachea midline. Absent: lymphadenopathy - Respiratory Respiratory exam: Present: CTAB. Absent: accessory muscle use, rales, rhonchi, wheezes - Cardiovascular Cardiovascular exam: Present: RRR, +S1, +S2. Absent: diastolic murmur, gallop, rubs, systolic murmur - GI/Abdominal GI/Abdominal exam: Present: normal bowel sounds, soft, no peritoneal signs. Absent: distended, tenderness - Extremities Exam Extremities exam: Present: warm, radial pulses palpable and symmetrical. Absent : calf tenderness, cyanotic, pedal edema - Neurological Exam Neurological exam: Present: CN II-XII intact, oriented X3, no focal deficits, strengths equal and symetr throughout. Absent: pronater drift, facial droop, speech deficit - Skin Skin exam: Present: dry, intact, normal color, warm Internal Medicine: Result - Labs CBC & Chem 7: 05/10/17 05:55 05/10/17 05:55 Labs: Short CBC 05/10/17 Range/Units 05:55 WBC 3.7 L (4.3-11.1) K/mcL Hgb 13.8 (12.9-16.9) g/dL Hct 39.4 (37.5-50.1) % Plt Count 181 (140-400) K/mcL Neutrophils # 2.1 (1.6-8.9) K/mcL BMP 05/10/17 05:55 Sodium 135 L Potassium 3.9 Chloride 104 Carbon Dioxide 24 BUN 13 Creatinine 0.73 Glucose 232 H Calcium 8.9 - ABG Interpretation ABG results: PT/INR, D-dimer PT 11.2 Seconds (9.4-12.1) 05/09/17 16:44 - Impressions Impressions Brain MRI 05/10/17 02:16 IMPRESSION: Mild chronic small vessel ischemic changes. No acute brain parenchymal abnormality. Mild sinus disease. D/ /10/2017 09:04:01 Silva Alberto MD / [email or web address] Interpreting Provider: Silva Alberto MD Echocardiogram 05/10/17 02:16 Impressions: LVEF 55-60%. Normal LV chamber size, wall thickness and function. Mild left ventricular diastolic dysfunction. Normal right ventricular structure and function. Right to left shunt with agitated saline consistent with a possible PFO. No evidence of pulmonary hypertension. No significant valvular dysfunction. Left Ventricular Wall Motion: Rest Echo Findings All wall segments showed normal motion. Findings: Study Quality * Technically adequate exam. ECG Findings * Normal sinus rhythm. Left Ventricle * LVEF 55-60%. * Normal LV chamber size, wall thickness and function. * Mild left ventricular diastolic dysfunction. Right Ventricle * Normal right ventricular structure and function. Left Atrium * Mildly dilated left atrium. Right Atrium * Normal right atrial size. Interatrial Septum * Right to left shunt with agitated saline consistent with a possible PFO. Aortic Valve * Trileaflet aortic valve with normal function. * No aortic regurgitation. * Trace aortic regurgitation. Mitral Valve * Normal mitral valve structure and function. * No mitral regurgitation. * No mitral stenosis. Tricuspid Valve * Normal tricuspid valve structure and function. * Trace tricuspid regurgitation. * No evidence of pulmonary hypertension. Pulmonic Valve * Normal pulmonic valve structure and function. * Trace pulmonic regurgitation. Aorta * Normally sized aortic root. Pericardium * The pericardium appears normal. IVC * Normal IVC dimensions and inspiratory collapse. Pulmonary Artery * Normal visualized portions of the main pulmonary artery. Consult Discharge Plan - Plan Referrals: NONE,PCP [Primary Care Provider] - Prescriptions: Atorvastatin [Lipitor] 80 mg PO HS #30 tablet Melatonin/Pyridoxine HCl (B6) [Melatonin 5 mg Tablet] 1 each PO HS #30 tablet rOPINIRole [Requip] 1 mg PO HS #30 tablet
--- NOTE | 2017-05-10 19:31 | Electrocardiograph Report ---
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
--- NOTE | 2017-05-10 20:20 | Electrocardiograph Report ---
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
[2017-05-10] MEDS ORDERED: rOPINIRole 1 MG TABLET PO SCH (21:00)
[2017-05-10] MEDS ORDERED: Melatonin 3 MG TABLET PO SCH (21:00)
[2017-05-10] MEDS ORDERED: Insulin LISPRO 300 UNITS/3 ML VIAL SQ SCH (21:00)
[2017-05-11] MEDS: *HR* Heparin 5,000 UNIT/ML VIAL SQ SCH ×2 (05:13→19:06)
[2017-05-11 06:19] LABS: Hematocrit 37.4 % (37.5-50.1); Hemoglobin 13.4 g/dL (12.9-16.9); Mean Corpuscular HGB Conc 35.8 g/dL (31.6-35.5); Mean Corpuscular Hemoglobin 30.7 pg (28.0-33.3); Mean Corpuscular Volume 85.6 fL (83.0-100.0); Mean Platelet Volume 9.6 fL (9.4-12.4); Platelet Count 169 K/mcL (140-400); Red Blood Count 4.37 M/mcL (4.19-5.50)
[2017-05-11 06:38] LABS: BUN/Creatinine Ratio 25 (6-26); Blood Urea Nitrogen 19 mg/dL (6-20); Carbon Dioxide 23 mEq/L (23-29); Chloride 104 mEq/L (98-107); Glucose 273 mg/dL (70-105); Osmolality,Calculated 290 (280-300); Potassium 3.9 mEq/L (3.5-5.1); Sodium 134 mEq/L (136-145); eGFR For African Americans > 60 (> 60); eGFR For Non-African Americans > 60 (> 60)
[2017-05-11] MEDS: Insulin LISPRO 300 UNITS/3 ML VIAL SQ SCH ×3 (08:06→17:20)
--- NOTE | 2017-05-11 09:01 | Neurology Progress Note ---
<ZainbeccaJosé Miguel Hernandez - Last Filed: 05/11/17 11:44> Date of Encounter: 05/11/17 Time of Encounter: 09:00 Assessment and Plan (1) Facial numbness Current Visit: Yes Status: Resolved Mr. Jiménez 56-year-old male presented with left facial numbness tingling and intermittent facial droop 2 episodes over the last 2 days. No significant risk factors, symptoms completely resolved, imaging studies negative for any acute findings. He does mention poor sleep habits, secondary to his job. - Low suspicion for TIA or stroke, likely secondary to poor sleeping habits. No findings to support Murcia's palsy or trigeminal neuralgia. - Continue monitor symptoms, improved sleep habits. 05/11: No new events overnight, no reoccurrence of symptoms. Carotid arteries demonstrate 60-79% stenosis in the internal right carotid artery and moderate 40 -59% stenosis in the left. I discussed aspirin, statin and diabetic control with Mr. Jiménez. He needs to follow up with a primary care provider and have routine follow-up. He denies any chest pain or chest pressure but with recurrent jaw pain and known carotid artery disease I advised him to monitor his symptoms for chest pressure, chest pain, pain radiating into his arm or his jaw including monitoring for recurrent TIA like symptoms. He demonstrate understanding and agreement to this plan. CTA Neck: IMPRESSION: 1. Calcified and noncalcified atherosclerotic plaque within the proximal right internal carotid artery resulting in a 70% stenosis based on NASCET criteria. 2. No significant stenosis of the right internal carotid artery based on NASCET criteria. 3. Moderate atherosclerosis. 4. Indeterminate 5 mm right upper lobe pulmonary nodule. A dedicated CT of the chest without contrast is recommended for further evaluation. 5. Moderate degenerative changes of the cervical spine with resulting [id number] spinal canal stenosis at C5-6 and C6-7 and moderate to severe bilateral neural foraminal narrowing, most pronounced on the right at C5-6. Subjective Interval history: Mr. Jiménez 56-year-old male seen evaluate a patient bedside this morning. Alert awake interactive no acute distress, no signs of focal weakness or other neurologic abnormalities. Mr. Jiménez says that he is doing well no recurrence of facial droop and numbness pain or tingling. No developments of new or concerning neurologic symptoms overnight. At a long discussion regarding cardiovascular risk factors, carotid stenosis findings on imaging studies and future risk of potential TIA events. He understands it is important to take a daily aspirin, statin and control his diabetes. He does not smoke which is positive for him. Objective - Constitutional Vitals: Temp Pulse Resp BP Pulse Ox 98.3 F 93 18 145/82 95 05/11/17 07:00 05/11/17 07:00 05/11/17 07:00 05/11/17 07:00 05/11/17 08:00 General appearance: Present: cooperative, A&O X 3, no acute distress, answers questions appropriately - Head Head exam: Present: atraumatic, normocephalic - Eye Eye exam: Present: PERRL, conjuntiva pink, sclera anicteric Pupils: Present: PERRL - Extremities Exam Extremities exam: Present: warm, radial pulses palpable and symmetrical. Absent : calf tenderness, cyanotic, pedal edema - Neurological Exam Sensorimotor examination: Present: intact Motor Examination: Present: grossly full strength in all extremities, full strength in all major muscle groups Motor examination - right side: 5/5: deltoids, biceps, triceps, wrist flexion, wrist extension, bilingual receptionist, hip flexors, tibialis Anterior, quadriceps, toe extension (EHL), plantarflexion Motor examination - left side: 5/5: deltoids, biceps, triceps, wrist flexion, wrist extension, hip flexors, bilingual receptionist, quadriceps, tibialis Anterior, toe extension (EHL), plantarflexion Sensation intact: Present: intact Reflex and gait examination: intact Reflexes: Biceps: 2+, Triceps: 2+, Brachioradialis: 2+, Patella: 2+, Achilles: 2 + Mental Status Examination: Present: awake, alert, oriented to person, oriented to place, oriented to time, follows commands appropriately, answers questions appropriately, no agnosia, no aphasia, no aproxia, lucid Cranial nerve examination: Present: PERRL, EOMI, visual garcía intact, corneal reflexes brisk symmetrically, sensory to face intact, mastication intact, no facial asymmetry is present, no dysarthria, hearing is intact symmetrically, soft palate elevates bilaterally upon phonation, flexes SCM and trapezius muscles symmetrically with full power Cerebellar examination: Present: no dysmetria, performs finger to nose and heel to momin symmetrically without ataxia, no gait ataxia Results - Laboratory Findings CBC and BMP: 03/08/18 04:35 05/11/17 04:35 Abnormal lab findings: Abnormal lab results Hct 37.4 % (37.5-50.1) L 05/11/17 04:35 MCHC 35.8 g/dL (31.6-35.5) H 05/11/17 04:35 Sodium 134 mEq/L (136-145) L 05/11/17 04:35 Glucose 273 mg/dL (70-105) H 05/11/17 04:35 POC Glucose 325 (58-89) H 05/10/17 19:42 Consult Discharge Plan - Plan Referrals: Jayson Mccracken MD [Partnered Physician] - 06/12/17 8:30 am ([address]- [facility] [place]) NONE,PCP [Primary Care Provider] - Prescriptions: Atorvastatin [Lipitor] 80 mg PO HS #30 tablet Melatonin/Pyridoxine HCl (B6) [Melatonin 5 mg Tablet] 1 each PO HS #30 tablet rOPINIRole [Requip] 1 mg PO HS #30 tablet <Evelio Taylor I - Last Filed: 05/11/17 16:29> Date of Encounter: 05/11/17 Assessment and Plan (1) TIA (transient ischemic attack) Current Visit: Yes Status: Acute This patient who was admitted earlier with the symptoms of numbness paresthesias on the face as well as other symptoms seems to be consistent with TIA. During the workup he was found to have right carotid stenosis 70% Echocardiogram also shows a small PFO with [id number] shunt Evaluated by cardiology as well as vascular surgery From neurology standpoint suggest to continue on Plavix as well as statin He probably would need follow-up with vascular surgery 4 PFO do not think that he would require any anticoagulation as a very small in size antiplatelet therapy with platelet should be enough Certainly need to control the risk factors and need lifestyle modification with better blood pressure sugar control as well as no smoking or drinking and regular exercise would help to prevent any further strokes ok to DISCHARGE from neurology standpoint Qualifiers: Transient cerebral ischemia type: unspecified Qualified Code(s): G45.9 - Transient cerebral ischemic attack, unspecified (2) Carotid stenosis Current Visit: Yes Status: Acute Qualifiers: Laterality: right Qualified Code(s): I65.21 - Occlusion and stenosis of right carotid artery (3) PFO (patent foramen ovale) Current Visit: Yes Status: Acute Objective - Constitutional Vitals: Temp Pulse Resp BP Pulse Ox 98.8 F 94 18 133/80 95 05/11/17 15:58 05/11/17 15:58 05/11/17 15:58 05/11/17 15:58 05/11/17 15:58 Results - Laboratory Findings CBC and BMP: 05/11/17 04:35 05/11/17 04:35 Abnormal lab findings: Abnormal lab results Hct 37.4 % (37.5-50.1) L 05/11/17 04:35 MCHC 35.8 g/dL (31.6-35.5) H 05/11/17 04:35 Sodium 134 mEq/L (136-145) L 05/11/17 04:35 Glucose 273 mg/dL (70-105) H 05/11/17 04:35 POC Glucose 325 (58-89) H 05/10/17 19:42
--- NOTE | 2017-05-11 12:51 | Vascular/Endovasc Consult Note ---
Date of Encounter: 05/11/17 Time of Encounter: 13:00 Assessment and Plan (1) Carotid stenosis, bilateral Status: Chronic The pathophysiology and natural history of carotid stenosis was discussed with the patient and all questions were answered. The patient has a 60-79% JENNIFER stneosis and a 40-59% LICA stenosis by carotid duplex. His CTA of the neck reveals a 70% JENNIFER stenosis and no signficant LICA. stenosis. The patient was advised to continue with daily ASA and Atorvastatin. He will follow-up in vascular clinic after discharge for further evaluation. He was instructed to seek immediate medical attention for signs or symptoms of CVA, TIA or amaurosis fugax. (2) Essential hypertension Status: Chronic He was counseled regarding atherosclerotic risk factor reduction. (3) TIA (transient ischemic attack) Status: Acute The patient was admitted with a TIA. His symptoms have resolved. Qualifiers: Transient cerebral ischemia type: carotid artery syndrome (hemispheric) Qualified Code(s): G45.1 - Carotid artery syndrome (hemispheric) (4) Type 2 diabetes mellitus without complication, with long-term current use of insulin Status: Chronic - History of Present Illness Consult date: 05/11/17 Requesting physician: Piedad Falcon Consult reason: Carotid Stenosis Chief complaint: Carotid stenosis History of present illness: Mr. Jiménez is a 56 year old male with ahistory of diabetes and hypertension who presented to [facility] ER with complaints of slurred speech, left facial parasthesias and a facial droop that had occurred twice over several days. The patient was admitted for a TIA. As part of his evaluation, he underwent a carotid duplex which revealed significant carotid stenosis. Vascular Surgery was consulted for further evaluation. The patient now denies reccurent signs or symptoms of CVA, TIA or amaurosis fugax. At the time of evaluation, the patient is alert and comfortable. He denies chest pain or shortness of breath. Past Med Surg Social Fam HX - Past Medical History Medical history: diabetes, hypertension Psychiatric history: no psych history - Past Surgical History Surgical History: no surgical history - Social History Smoking Status: Former smoker Smokeless Tobacco Status: No Alcohol use: none Drug use: none - Family History Father Living Status: Hx Family Cancer: Yes Mother Living Status: Hx Family Cardiac Disorders: Yes Medications and Allergies glipiZIDE 05/09/17 [History] Atorvastatin [Lipitor] 80 mg PO HS #30 tablet 05/10/17 [Rx] Melatonin/Pyridoxine HCl (B6) [Melatonin 5 mg Tablet] 1 each PO HS #30 tablet [Rx] rOPINIRole [Requip] 1 mg PO HS #30 tablet 05/10/17 [Rx] 3 Allergy/AdvReac Type Severity Reaction Status Date / Time metformin Allergy Diarrhea Verified 05/09/17 16:26 All Systems Review: The remainder of the systems were reviewed and are negative - Constitutional Constitutional: no chills, no fever(s) - Cardiovascular Cardiovascular: no chest pain at rest, no chest pain with exertion, no dyspnea at rest, no dyspnea on exertion Exam Vital Signs, Last 4 Hours Temp Pulse Resp BP Pulse Ox 05/11/17 11:20 97.5 F L 91 18 137/70 96 General: Present: Conversant, No Apparent Distress HEENT: Present: Normocephaly, Trachea midline, Pupils equal Neck: Absent: JVD, Lymphadenopathy, Left Carotid bruit, Right Carotid bruit Cardiac: Present: Reg Rate and Rhythm, Normal S1 and S2 Lungs: Present: Normal Breath Sounds, No Wheeze, Rales, Rhonchi Neuro: Present: Alert and responsive, No focal deficits noted, Cranial nerves grossly intact, Motor nerves grossly intact, Sensory nerves grossly intact Abdomen: Present: Soft, Non-tender. Absent: Masses Vascular: Present: Normal capillary refill, Pulse, normal. Absent: Cyanosis, Edema Skin: Present: No rashes noted on visualized skin Musculoskeletal: Present: No Chest Wall Tenderness Consult Discharge Plan - Plan Referrals: Jayson Mccracken MD [Partnered Physician] - 06/12/17 8:30 am ([address]- [facility] – [place]) NONE,PCP [Primary Care Provider] - Prescriptions: Atorvastatin [Lipitor] 80 mg PO HS #30 tablet Melatonin/Pyridoxine HCl (B6) [Melatonin 5 mg Tablet] 1 each PO HS #30 tablet rOPINIRole [Requip] 1 mg PO HS #30 tablet
[2017-05-11 16:00] VITALS: BP 133/80
--- NOTE | 2017-05-11 16:33 | Internal Med Progress Note ---
Date of Encounter: 05/11/17 Time of Encounter: 16:30 - Assessment and plan (1) PFO (patent foramen ovale) Current Visit: Yes Status: Acute Assessment and plan: Echo impression LVEF 55-60%, normal LV chamber size, wall thickness, and function. Mild left ventricular diastolic dysfunction. Normal right ventricular structure and function. Right to left shunt with agitated saline consistent with a possible PFO. No evidence of pulmonary hypertension and no significant valvular dysfunction. Spoke with neurologist, recommend consult cardiology for possible KELLY or how they with want to manage this. Cardiology would do the KELLY if neuro felt it was clinically warrented Continue aspirin (2) Dysarthria Current Visit: Yes Status: Resolved (3) TIA (transient ischemic attack) Current Visit: Yes Status: Acute Assessment and plan: All symptoms have resolved Echo was reviewed with PFO Carotids of the neck showed severe stenosis of the right ICA up to 79% and moderate of the left ICA. Discussed with neurology and Plavix was initiated Vascular service was consulted CTA of the neck was completed with impression of calcified and noncalcified atherosclerotic plaque with in the proximal right internal carotid artery resulting is 70% stenosis No significant stenosis of the right internal carotid artery Moderate arthroscleros Indeterminate 5 mL right upper lobe pulmonary nodule Moderate degenerative changes of the cervical spine with resulting mild to moderate spinal canal stenosis of C5-6 and C6-7. Moderate to severe bilateral neural for minimal narrowing most pronounced on the right at C5-6 Qualifiers: Transient cerebral ischemia type: unspecified Qualified Code(s): G45.9 - Transient cerebral ischemic attack, unspecified (4) Type 2 diabetes mellitus without complication, with long-term current use of insulin Current Visit: Yes Status: Chronic Assessment and plan: Continue sliding scale insulin with Accu-Cheks before meals and at bedtime. Patient states he was on glipizide but pharmacy stated he has not had it filled since 2016. (5) Facial numbness Current Visit: Yes Status: Resolved (6) Restless leg syndrome Current Visit: Yes Status: Acute Assessment and plan: Continue Requip (7) Insomnia Current Visit: Yes Status: Acute Assessment and plan: Continue melatonin Qualifiers: Insomnia type: unspecified Qualified Code(s): G47.00 - Insomnia, unspecified (8) DVT prophylaxis Current Visit: Yes Status: Acute Assessment and plan: Heparin subcutaneous (9) Pulmonary nodule seen on imaging study Current Visit: Yes Status: Acute Assessment and plan: Will need outpatient follow-up - Subjective Interval history: Patient is lying in the bed and has no voiced complaints. He is resting quietly. Denies chest pain, shortness of breath, abdominal pain, fever, chills , changes in bowel or bladder, abdominal pain, headache or syncope. No further symptoms of TIA no slurred speech facial droop or weakness. - Constitutional Vitals: Temp Pulse Resp BP Pulse Ox 98.8 F 94 18 133/80 95 05/11/17 15:58 05/11/17 15:58 05/11/17 15:58 05/11/17 15:58 05/11/17 15:58 General appearance: Present: cooperative, A&O X 3, pleasant, answers questions appropriately - Head Head exam: Present: atraumatic, normocephalic - Eye Eye exam: Present: PERRL, conjuntiva pink, sclera anicteric Pupils: Present: PERRL - Neck Neck exam general surgery: Present: supple, trachea midline. Absent: lymphadenopathy - Respiratory Respiratory exam: Present: CTAB. Absent: accessory muscle use, rales, rhonchi, wheezes - Cardiovascular Cardiovascular exam: Present: RRR, +S1, +S2. Absent: diastolic murmur, gallop, rubs, systolic murmur - GI/Abdominal GI/Abdominal exam: Present: normal bowel sounds, soft, no peritoneal signs. Absent: distended, tenderness - Extremities Exam Extremities exam: Present: warm, radial pulses palpable and symmetrical. Absent : calf tenderness, cyanotic, pedal edema - Neurological Exam Neurological exam: Present: alert, CN II-XII intact, normal gait, oriented X3, no focal deficits, strengths equal and symetr throughout. Absent: motor sensory deficit, pronater drift, facial droop, speech deficit - Skin Skin exam: Present: dry, intact, normal color, warm Internal Medicine: Result - Labs CBC & Chem 7: 05/11/17 04:35 05/11/17 04:35 Labs: Short CBC 05/11/17 Range/Units 04:35 WBC 4.3 (4.3-11.1) K/mcL Hgb 13.4 (12.9-16.9) g/dL Hct 37.4 L (37.5-50.1) % Plt Count 169 (140-400) K/mcL [facility] 05/11/17 04:35 Sodium 134 L Potassium 3.9 Chloride 104 Carbon Dioxide 23 BUN 19 Creatinine 0.76 Glucose 273 H Calcium 9.0 - ABG Interpretation ABG results: PT/INR, D-dimer PT 11.2 Seconds (9.4-12.1) 05/09/17 16:44 - Impressions Impressions Neck CTA 05/11/17 09:30 IMPRESSION: 1. Calcified and noncalcified atherosclerotic plaque within the proximal right internal carotid artery resulting in a 70% stenosis based on NASCET criteria. 2. No significant stenosis of the right internal carotid artery based on NASCET criteria. 3. Moderate atherosclerosis. 4. Indeterminate 5 mm right upper lobe pulmonary nodule. A dedicated CT of the chest without contrast is recommended for further evaluation. 5. Moderate degenerative changes of the cervical spine with resulting [id number] spinal canal stenosis at C5-6 and C6-7 and moderate to severe bilateral neural foraminal narrowing, most pronounced on the right at C5-6. D/ / 05/11/2017 10:51:40 Jean Carlos Berumen MD / Ariane Siddiqui Interpreting Provider: Jean Carlos Berumen MD Consult Discharge Plan - Plan Referrals: Jayson Mccracken MD [Partnered Physician] - 06/12/17 8:30 am ([address]- [facility] [place] NONE,PCP [Primary Care Provider] - Prescriptions: Atorvastatin [Lipitor] 80 mg PO HS #30 tablet Melatonin/Pyridoxine HCl (B6) [Melatonin 5 mg Tablet] 1 each PO HS #30 tablet rOPINIRole [Requip] 1 mg PO HS #30 tablet
--- NOTE | 2017-05-12 12:44 | Event Note ---
Date of Encounter: 05/11/17 Time of Encounter: 20:00 The patient was here for TIA/CVA. Found to have carotid artery stenosis on CTA of head/neck. He became angry as he stated that he medical team was not keeping him informed of his status. He reports that Dr. Mccracken told him he could go home but that nobody had even attempted to discharge him. I reviewed the patient's notes and offered to discharge him appropriately to ensure follow- up and appropriate discharge medications were in place. However, he refused and left AGAINST MEDICAL ADVICE (AMA) and refused to sign the AMA paperwork.
== END 2017-05-11 19:10 | disposition left against medical advice (07) ==
LOC: 3BNU 16:22 → EMEROO 16:22 → 3BNU 19:30
PROVIDERS: ADMIT Registered Nurse; ATTEND Registered Nurse